=== PATIENT | female | born 1955 | race Caucasian/White ===

== ENCOUNTER 2018-09-24 21:22 | Inpatient (IN) | payer MEDICARE, MEDICAID ==
[~2018-09-24] VITALS: Ht 165.1 cm; Wt 50.0 kg
[2018-09-24 22:37] LABS: CLARITY,URINE SLIGHTLY CLOUDY (Clear); COLOR,URINE YELLOW (Yellow); GLUCOSE, URINE NEGATIVE (Neg); KETONES,URINE NEGATIVE (Neg); LEUKOCYTE ESTERASE ,URINE MODERATE (Neg); NITRITES, URINE NEGATIVE (Neg); OCCULT BLOOD,URINE NEGATIVE (Neg); PH,URINE >=9.0 (4.8-8.0); PROTEIN,URINE 30 mg/dl (Neg); UROBILINOGEN,URINE 0.2 E.U/dL (0.2-1.0)
[2018-09-24 22:37] LABS: HEMOGLOBIN 8.6 g/dl (12.0-16.0); LYMPHOCYTES # (AUTO) 0.2 X10'3 (1.1-4.8); NEUTROPHILS # (AUTO) 3.1 X10'3 (1.8-7.7); WHITE BLOOD COUNT 3.6 X10'3 (4.5-11.0)
[2018-09-24 22:38] LABS: BASOPHILS % (AUTO) 0.6 % (0-1); EOSINOPHILS % (AUTO) 0.4 % (0-6); HEMATOCRIT 25.1 % (35.0-45.0); LYMPHOCYTES % (AUTO) 6.1 % (21-51); MEAN CORPUSCULAR HGB CONC 34.3 g/dL (33.0-36.5); MEAN CORPUSCULAR VOLUME 99.3 FL (78-98); MONOCYTES # (AUTO) 0.2 X10'3 (0-0.9); MONOCYTES % (AUTO) 6.8 % (2-12); NEUTROPHILS % (AUTO) 86.1 % (42-75); PLATELET COUNT 318 X10'3 (140-440); RED BLOOD COUNT 2.53 X10'6 (4.20-5.60); RED CELL DISTRIBUTION WIDTH 13.6 % (11.5-14.5)
[2018-09-24 22:40] LABS: UA COLLECTION TYPE FOLEY CATH; URINE HCG NEGATIVE (NEG)
[2018-09-24 22:45] LABS: BACTERIA,URINE 2+ /HPF (Neg); MUCUS STRANDS NONE SEEN /LPF (Neg); RBC,URINE NONE SEEN /HPF (0-2); SQUAMOUS EPITHELIAL CELL,UR NONE SEEN /LPF (FEW); WBC,URINE 0-4 /HPF (0-4)
--- NOTE | 2018-09-24 22:45 | NUR ---
PT DAUGHTER IS FANI CORRALES, PHONE NUMBER [phone]. REQUESTS TO BE CALLED IF PT DISCHARGES-IS PT RIDE HOME.
[2018-09-24 22:49] LABS: AMORPHOUS PHOSPHATES 1+; TRIPLE PHOSPHATE CRYST 1+ /HPF (NEGATIVE)
[2018-09-24 22:50] LABS: ALANINE AMINOTRANSFERASE 62 U/L (12-78); ALBUMIN 2.6 G/DL (3.4-5.0); ALBUMIN/GLOBULIN RATIO 0.5 (1.1-1.5); ALKALINE PHOSPHATASE 84 IU/L (46-116); ANION GAP 15 (8-16); ASPARTATE AMINO TRANSFERASE 34 U/L (10-37); BILIRUBIN,TOTAL 0.3 MG/DL (0.1-1.0); BLOOD UREA NITROGEN 73 MG/DL (7-18); BUN/CREATININE RATIO 28.6 (6.6-38.0); CALCIUM 8.6 MG/DL (8.5-10.1); CHLORIDE 92 MMOL/L (99-107); CREATININE 2.55 MG/DL (0.40-0.90); GLUCOSE 151 MG/DL (70-104); POTASSIUM 3.5 MMOL/L (3.5-5.1); SODIUM 125 MMOL/L (135-145); TOTAL CARBON DIOXIDE 17.7 MMOL/L (24-32); TOTAL PROTEIN 7.4 G/DL (6.4-8.2); eGFR 19 ML/MIN
[2018-09-24] MEDS ORDERED: SERT-153 PO (23:27)
[2018-09-24] MEDS ORDERED: TACR1CAP28 PO (23:27)
[2018-09-24] MEDS ORDERED: PRED2.5T4 PO (23:30)
[2018-09-24] MEDS ORDERED: METO1TAB25 PO (23:30)
[2018-09-24] MEDS ORDERED: AZAT50TA35 PO (23:30)
[2018-09-24] MEDS ORDERED: OMEP40CA13 PO (23:30)
[2018-09-24] MEDS ORDERED: normal saline 1000ML IV soln IVB ONE (23:35)
[2018-09-25] MEDS ORDERED: normal saline 1000ml 1,000 ML IV SCH (01:22)
[2018-09-25] MEDS ORDERED: acetaminophen 325mg tablet PO PRN (01:25)
[2018-09-25] MEDS ORDERED: metoclopramide 5 mg/ml inj IV PRN (01:25)
[2018-09-25] MEDS: HYDROcodone/acetaminophen 5mg/325mg tablet PO PRN ×2 (03:43→19:24)
[2018-09-25 03:47] VITALS: BP 151/86
--- NOTE | 2018-09-25 06:05 | NUR ---
Patient in room [facility]. I have received report from Parul Myrick RN and had the opportunity to ask questions and assume patient care.
--- NOTE | 2018-09-25 06:42 | NUR ---
Problems reprioritized. Patient report given, questions answered & plan of care reviewed with CORRIE Sanabria.
[2018-09-25 07:47] VITALS: BP 125/60
[2018-09-25] MEDS ORDERED: predniSONE 5mg tablet PO SCH (08:00)
[2018-09-25] MEDS ORDERED: HYDROchlorothiazide 25mg tablet PO SCH (08:00)
[2018-09-25] MEDS ORDERED: metoprolol tartrate 50mg tablet PO SCH (08:00)
[2018-09-25] MEDS ORDERED: prednisone 10mg tablet PO SCH (08:00)
[2018-09-25] MEDS: pantoprazole 40mg Tablet.DR PO SCH (08:46)
[2018-09-25] MEDS: sertraline 50mg tablet PO SCH (08:48)
[2018-09-25] MEDS: tacrolimus anhydrous 1mg capsule PO SCH ×2 (08:48→19:25)
[2018-09-25] MEDS: heparin, porcine 5000 units/ml vial SQ SCH ×2 (08:50→19:26)
[2018-09-25 09:44] LABS: % IRON SATURATION 31 % (11-46); IRON 37 UG/DL (49-151); TOTAL IRON BINDING CAPACITY 121 UG/DL (259-388)
[2018-09-25] MEDS: methylPREDNISolone sod succ 125mg/2ml vial IV SCH ×2 (09:56→19:24)
[2018-09-25] MEDS: potassium cl 20mEq in 1/2 NS 1,000 ML IV SCH ×3 (10:01→23:28)
[2018-09-25] MEDS ORDERED: METO25TA6 PO (10:20)
[2018-09-25] MEDS ORDERED: LORA-269 PO (10:22)
[2018-09-25 12:12] VITALS: BP 141/66
--- NOTE | 2018-09-25 18:18 | NUR ---
Problems reprioritized. Patient report given, questions answered & plan of care reviewed with Parul Myrick RN.
[2018-09-25 19:00] VITALS: BP 163/72
[2018-09-25] MEDS: metoprolol tartrate 25mg tablet PO SCH (19:25)
[2018-09-25] MEDS ORDERED: metoprolol tartrate 25mg tablet PO SCH (20:00)
[2018-09-25] MEDS ORDERED: diatr meglu/diatrizoate 30ml oral sol.-(3 dose) bottle PO ONE (21:00)
--- NOTE | 2018-09-25 21:00 | NUR ---
Urostomy bag was leaking into bed. Required restart of 24 hour urine collection. Restarted at 2100.
[2018-09-25] MEDS: diatr meglu/diatrizoate 30ml oral sol.-(3 dose) bottle PO SCH (22:13)
[2018-09-26] VITALS: BP 144/62
[2018-09-26] MEDS: HYDROcodone/acetaminophen 5mg/325mg tablet PO PRN ×3 (04:48→23:29)
--- NOTE | 2018-09-26 05:16 | NUR ---
colostomy device changed.
[2018-09-26 06:00] LABS: BASOPHILS % (AUTO) 0.3 % (0-1); EOSINOPHILS % (AUTO) 0.2 % (0-6); HEMATOCRIT 24.5 % (35.0-45.0); HEMOGLOBIN 8.4 g/dl (12.0-16.0); LYMPHOCYTES # (AUTO) 0.2 X10'3 (1.1-4.8); LYMPHOCYTES % (AUTO) 8.5 % (21-51); MEAN CORPUSCULAR HEMOGLOBIN 34.3 PG (27.0-31.0); MEAN CORPUSCULAR HGB CONC 34.2 g/dL (33.0-36.5); MEAN CORPUSCULAR VOLUME 100.4 FL (78-98); MEAN PLATELET VOLUME 6.7 FL (7.4-10.4); MONOCYTES # (AUTO) 0.2 X10'3 (0-0.9); MONOCYTES % (AUTO) 6.6 % (2-12); NEUTROPHILS % (AUTO) 84.4 % (42-75); PLATELET COUNT 291 X10'3 (140-440); RED BLOOD COUNT 2.44 X10'6 (4.20-5.60); RED CELL DISTRIBUTION WIDTH 13.7 % (11.5-14.5); WHITE BLOOD COUNT 2.4 X10'3 (4.5-11.0)
[2018-09-26 06:02] LABS: ALANINE AMINOTRANSFERASE 50 U/L (12-78); ALBUMIN 2.3 G/DL (3.4-5.0); ALBUMIN/GLOBULIN RATIO 0.5 (1.1-1.5); ALKALINE PHOSPHATASE 73 IU/L (46-116); ANION GAP 13 (8-16); ASPARTATE AMINO TRANSFERASE 28 U/L (10-37); BILIRUBIN,TOTAL 0.4 MG/DL (0.1-1.0); BLOOD UREA NITROGEN 55 MG/DL (7-18); BUN/CREATININE RATIO 28.5 (6.6-38.0); CALCIUM 8.8 MG/DL (8.5-10.1); CHLORIDE 98 MMOL/L (99-107); CREATININE 1.93 MG/DL (0.40-0.90); GLUCOSE 125 MG/DL (70-104); MAGNESIUM 1.5 MG/DL (1.5-2.4); PHOSPHORUS 4.1 MG/DL (2.3-4.5); POTASSIUM 4.4 MMOL/L (3.5-5.1); SODIUM 129 MMOL/L (135-145); TOTAL CARBON DIOXIDE 17.6 MMOL/L (24-32); TOTAL PROTEIN 6.9 G/DL (6.4-8.2); eGFR 26 ML/MIN
--- NOTE | 2018-09-26 06:23 | NUR ---
Problems reprioritized. Patient report given, questions answered & plan of care reviewed with CORRIE Cooper.
[2018-09-26 07:00] VITALS: BP 151/68
[2018-09-26 07:09] LABS: PLATELET ESTIMATE NORMAL; TOTAL CELLS COUNTED 100
[2018-09-26] MEDS: diatr meglu/diatrizoate 30ml oral sol.-(3 dose) bottle PO SCH ×2 (07:45→11:07)
[2018-09-26] MEDS: pantoprazole 40mg Tablet.DR PO SCH (07:48)
[2018-09-26] MEDS: sertraline 50mg tablet PO SCH (07:48)
[2018-09-26] MEDS: tacrolimus anhydrous 1mg capsule PO SCH ×2 (07:48→20:09)
[2018-09-26] MEDS: metoprolol tartrate 25mg tablet PO SCH ×2 (07:49→20:10)
[2018-09-26] MEDS: heparin, porcine 5000 units/ml vial SQ SCH ×2 (07:50→19:50)
[2018-09-26] MEDS: methylPREDNISolone sod succ 125mg/2ml vial IV SCH ×2 (07:50→19:49)
[2018-09-26] MEDS: potassium cl 20mEq in 1/2 NS 1,000 ML IV SCH (09:12)
[2018-09-26 12:13] VITALS: BP 144/71
--- NOTE | 2018-09-26 16:51 | NUR ---
patient stated she was upset that she wasnt sure about her plan of care. Daughter called also. Dr Mccallum paged and stated ok to give brief update to daughter about patients diet is main focus, as patient appears very malnourished. Daughter called but not reached. will continuie to monitor and will call again. patient appears comfortable.
[2018-09-26] MEDS: ceFAZolin 1GM/D5W- ADD-VANTAGE 50 ML IV SCH ×2 (17:13→19:49)
--- NOTE | 2018-09-26 17:31 | NUR ---
Pt with low BMI of 18.0 and documented with 0-25% PO intake x 3 meals on renal diet not meeting nutrient needs. Pt seen at bedside reports low appetite that has been going on for the last couple of weeks with unknown etiology. Pt reports still eating three meals a day RN APPEALS however they are very small meals. Current documented height is 65", pt reports she is 67"; updated BMI using correct height is 16.96. Pt reports significant wt loss secondary to decreased appetite however is unsure of how much just that it's "a lot". Pt reports UBW of 110 lbs, current documented wt is 108 lbs. Per wt hx pt is -6 lbs since May of this year, this is non-significant wt loss of 5% in four months. However pt is 80% IBW with visible fat and muscle wasting which meets criteria for malnutrition, MD notified. Pt provided with written and verbal malnutrition education with ONS recommendations following discharge. Pt declines ONS or food preferences at this time. Pt admit with TEA, dehydration, emesis, and chronic vaginal bleeding possibly CA related per MD notes. Pt denies food allergies and reports difficulty chewing however denies texture modification at this time. Pt states she has a colostomy and reports increased activity. Documented LBM 8/7 with no stool output documented. Will continue to follow. Recommendations: 1) Continue renal diet; may benefit from diet liberalization pending additional trends in PO intake 2) Encourage PO intake 3) Routine bowel care 4) Iron supplementation given low iron level of 37, TIBC 121; MVI supplementation given MCV 100.4, will discuss recs with MD 5) Wt per rx Addendum: 09/26/18 at [address] Amended: Links added.
[2018-09-26 18:00] VITALS: BP 153/68
--- NOTE | 2018-09-26 18:24 | NUR ---
Patient in room [facility]. I have received report from CORRIE Cooper and had the opportunity to ask questions and assume patient care.
--- NOTE | 2018-09-26 18:48 | NUR ---
Problems reprioritized. Patient report given, questions answered & plan of care reviewed with Adam DENTON.
[2018-09-26 22:19] LABS: UREA NITROGEN 24HR,URINE 7.6 GM/24HR (7-20)
[2018-09-27] VITALS (8 sets, daily range): BP systolic 122–157; BP diastolic 55–80
[2018-09-27] MEDS: potassium cl 20mEq in 1/2 NS 1,000 ML IV SCH ×3 (00:13→19:50)
[2018-09-27] MEDS: HYDROcodone/acetaminophen 5mg/325mg tablet PO PRN ×3 (05:57→20:19)
[2018-09-27 06:08] LABS: TOTAL PROTEIN,URINE RANDOM 32.1 MG/DL
[2018-09-27 06:32] LABS: EOSINOPHILS % (AUTO) 0.3 % (0-6); HEMOGLOBIN 7.6 g/dl (12.0-16.0); MEAN CORPUSCULAR HEMOGLOBIN 34.6 PG (27.0-31.0); MONOCYTES # (AUTO) 0.2 X10'3 (0-0.9); NEUTROPHILS # (AUTO) 1.9 X10'3 (1.8-7.7); RED BLOOD COUNT 2.18 X10'6 (4.20-5.60); WHITE BLOOD COUNT 2.4 X10'3 (4.5-11.0)
[2018-09-27 06:34] LABS: ALANINE AMINOTRANSFERASE 36 U/L (12-78); ALBUMIN 2.2 G/DL (3.4-5.0); ALBUMIN/GLOBULIN RATIO 0.6 (1.1-1.5); ALKALINE PHOSPHATASE 63 IU/L (46-116); ANION GAP 10 (8-16); ASPARTATE AMINO TRANSFERASE 21 U/L (10-37); BILIRUBIN,TOTAL 0.3 MG/DL (0.1-1.0); BLOOD UREA NITROGEN 41 MG/DL (7-18); BUN/CREATININE RATIO 25.5 (6.6-38.0); CALCIUM 8.6 MG/DL (8.5-10.1); CHLORIDE 100 MMOL/L (99-107); CREATININE 1.61 MG/DL (0.40-0.90); GLUCOSE 109 MG/DL (70-104); MAGNESIUM 1.3 MG/DL (1.5-2.4); PHOSPHORUS 3.3 MG/DL (2.3-4.5); SODIUM 128 MMOL/L (135-145); TOTAL CARBON DIOXIDE 18.4 MMOL/L (24-32); TOTAL PROTEIN 6.2 G/DL (6.4-8.2); eGFR 32 ML/MIN
[2018-09-27 06:35] LABS: BASOPHILS % (AUTO) 0.5 % (0-1); LYMPHOCYTES # (AUTO) 0.3 X10'3 (1.1-4.8); LYMPHOCYTES % (AUTO) 10.9 % (21-51); MEAN CORPUSCULAR VOLUME 98.9 FL (78-98); MEAN PLATELET VOLUME 6.7 FL (7.4-10.4); NEUTROPHILS % (AUTO) 81.3 % (42-75); PLATELET COUNT 304 X10'3 (140-440); RED CELL DISTRIBUTION WIDTH 13.7 % (11.5-14.5)
--- NOTE | 2018-09-27 06:39 | NUR ---
Problems reprioritized. Patient report given, questions answered & plan of care reviewed with CORRIE Linares.
[2018-09-27 07:00] LABS: HEMATOCRIT 21.5 % (35.0-45.0)
[2018-09-27 07:17] LABS: UA EOSINOPHILS NO EOS /HPF
[2018-09-27] MEDS: metoprolol tartrate 25mg tablet PO SCH ×2 (07:52→20:20)
[2018-09-27] MEDS: sertraline 50mg tablet PO SCH (07:52)
[2018-09-27] MEDS: tacrolimus anhydrous 1mg capsule PO SCH ×2 (07:52→20:20)
[2018-09-27] MEDS: pantoprazole 40mg Tablet.DR PO SCH ×2 (07:52→20:20)
[2018-09-27] MEDS: methylPREDNISolone sod succ 125mg/2ml vial IV SCH ×2 (07:54→20:21)
[2018-09-27] MEDS: heparin, porcine 5000 units/ml vial SQ SCH ×2 (07:54→20:21)
[2018-09-27] MEDS: ceFAZolin 1GM/D5W- ADD-VANTAGE 50 ML IV SCH ×2 (07:54→20:21)
[2018-09-27] MEDS ORDERED: SIMETHICONE/SOD BICARB/CIT AC PACKET PO ONE ×2 (08:00→09:00)
--- NOTE | 2018-09-27 08:05 | NUR ---
reported critical hct 21.5 and decreased mag of 1.3 to MD. no new orders.
[2018-09-27 08:28] LABS: PLATELET ESTIMATE NORMAL; SCHISTOCYTES FEW; TOTAL CELLS COUNTED 100
[2018-09-27 15:52] LABS: OCCULT BLOOD STOOL NEGATIVE (Neg)
--- NOTE | 2018-09-27 18:00 | NUR ---
Patient in room [facility]. I have received report from CORRIE HADDAD and had the opportunity to ask questions and assume patient care.
--- NOTE | 2018-09-27 18:07 | NUR ---
Problems reprioritized. Patient report given, questions answered & plan of care reviewed with CORRIE Medina.
[2018-09-28] VITALS: BP 118/68
[2018-09-28] MEDS: potassium cl 20mEq in 1/2 NS 1,000 ML IV SCH (00:13)
[2018-09-28] MEDS: HYDROcodone/acetaminophen 5mg/325mg tablet PO PRN (04:16)
[2018-09-28 05:58] LABS: BASOPHILS % (AUTO) 0.4 % (0-1); MONOCYTES # (AUTO) 0.2 X10'3 (0-0.9)
[2018-09-28 06:00] VITALS: BP 122/74
[2018-09-28 06:00] LABS: EOSINOPHILS % (AUTO) 0.3 % (0-6); HEMATOCRIT 25.8 % (35.0-45.0); HEMOGLOBIN 8.9 g/dl (12.0-16.0); LYMPHOCYTES # (AUTO) 0.2 X10'3 (1.1-4.8); LYMPHOCYTES % (AUTO) 9.4 % (21-51); MEAN CORPUSCULAR HEMOGLOBIN 33.6 PG (27.0-31.0); MEAN CORPUSCULAR HGB CONC 34.7 g/dL (33.0-36.5); MEAN CORPUSCULAR VOLUME 96.7 FL (78-98); MEAN PLATELET VOLUME 6.4 FL (7.4-10.4); MONOCYTES % (AUTO) 6.4 % (2-12); NEUTROPHILS # (AUTO) 2.1 X10'3 (1.8-7.7); NEUTROPHILS % (AUTO) 83.5 % (42-75); PLATELET COUNT 315 X10'3 (140-440); RED BLOOD COUNT 2.67 X10'6 (4.20-5.60)
[2018-09-28 06:04] LABS: ALANINE AMINOTRANSFERASE 23 U/L (12-78); ALBUMIN 2.1 G/DL (3.4-5.0); ALBUMIN/GLOBULIN RATIO 0.5 (1.1-1.5); ALKALINE PHOSPHATASE 62 IU/L (46-116); ANION GAP 9 (8-16); ASPARTATE AMINO TRANSFERASE 17 U/L (10-37); BILIRUBIN,TOTAL 0.4 MG/DL (0.1-1.0); BLOOD UREA NITROGEN 32 MG/DL (7-18); BUN/CREATININE RATIO 23.4 (6.6-38.0); CALCIUM 8.5 MG/DL (8.5-10.1); CHLORIDE 99 MMOL/L (99-107); CREATININE 1.37 MG/DL (0.40-0.90); GLUCOSE 112 MG/DL (70-104); MAGNESIUM 1.1 MG/DL (1.5-2.4); POTASSIUM 5.2 MMOL/L (3.5-5.1); SODIUM 128 MMOL/L (135-145); TOTAL CARBON DIOXIDE 19.8 MMOL/L (24-32); TOTAL PROTEIN 6.3 G/DL (6.4-8.2); eGFR 39 ML/MIN
[2018-09-28 06:09] LABS: WHITE BLOOD COUNT 2.5 X10'3 (4.5-11.0)
--- NOTE | 2018-09-28 06:40 | NUR ---
Patient in room [facility]. I have received report from CORRIE Santamaria and had the opportunity to ask questions and assume patient care.
--- NOTE | 2018-09-28 06:40 | NUR ---
Problems reprioritized. Patient report given, questions answered & plan of care reviewed with CORRIE Delong.
[2018-09-28 07:26] LABS: PLATELET ESTIMATE NORMAL; TOTAL CELLS COUNTED 100
[2018-09-28 07:27] LABS: ANISOCYTOSIS 1+
[2018-09-28] MEDS: ceFAZolin 1GM/D5W- ADD-VANTAGE 50 ML IV SCH (08:20)
[2018-09-28] MEDS: methylPREDNISolone sod succ 125mg/2ml vial IV SCH (08:20)
[2018-09-28] MEDS: tacrolimus anhydrous 1mg capsule PO SCH (08:20)
[2018-09-28] MEDS: sertraline 50mg tablet PO SCH (08:20)
[2018-09-28] MEDS: heparin, porcine 5000 units/ml vial SQ SCH (08:21)
[2018-09-28] MEDS: metoprolol tartrate 25mg tablet PO SCH (08:21)
[2018-09-28] MEDS: pantoprazole 40mg Tablet.DR PO SCH (08:21)
[2018-09-28] MEDS ORDERED: AZAT50TA35 PO (08:41)
[2018-09-28] MEDS ORDERED: PANT40TA4 PO (08:41)
--- NOTE | 2018-09-28 09:07 | NUR ---
Dr. Mccallum notified of patient's high K 5.2 and low Mag 1.1. No new orders.
[2018-09-28 11:00] VITALS: BP 117/69
== END 2018-09-28 11:17 | disposition home or self-care (01) | DRG 682 ==
LOC: ER 21:23 → SUR 3N 09-25 01:41 → CMPBEDREQ 09-25 01:44
PROVIDERS: ADMIT Internal Medicine Critical Care Medicine; ATTEND Internal Medicine Critical Care Medicine
PROC: CT1 Nuclear Medicine, Urinary System, Planar Nuclear Medicine Imaging (ICD-10-PCS; 2018-09-25)
PROC: 30233N1 Transfusion of Nonautologous Red Blood Cells into Peripheral Vein, Percutaneous Approach (ICD-10-PCS; principal; 2018-09-27)
PROC: BD15YZZ Fluoroscopy of Upper GI using Other Contrast (ICD-10-PCS; 2018-09-27)
DX: N17.9 Acute kidney failure, unspecified (principal); E43 Unspecified severe protein-calorie malnutrition; E87.1 Hypo-osmolality and hyponatremia; Z68.1 Body mass index [BMI] 19.9 or less, adult; D61.818 Other pancytopenia; T86.19 Other complication of kidney transplant; N39.0 Urinary tract infection, site not specified; R64 Cachexia; K22.4 Dyskinesia of esophagus; R19.7 Diarrhea, unspecified; N18.9 Chronic kidney disease, unspecified; N93.9 Abnormal uterine and vaginal bleeding, unspecified; E86.0 Dehydration; Y83.0 Surgical operation with transplant of whole organ as the cause of abnormal reaction of the patient, or of later complication, without mention of misadventure at the time of the procedure; Z85.038 Personal history of other malignant neoplasm of large intestine; Z86.73 Personal history of transient ischemic attack (TIA), and cerebral infarction without residual deficits; Z90.710 Acquired absence of both cervix and uterus; Z93.3 Colostomy status; Z88.6 Allergy status to analgesic agent; Z88.5 Allergy status to narcotic agent; Z88.2 Allergy status to sulfonamides; Z88.8 Allergy status to other drugs, medicaments and biological substances; Z93.2 Ileostomy status; Z79.899 Other long term (current) drug therapy
CPT/HCPCS: 36415; 71045; 71250; 74176; 74241; 76700; 78707; 80053; 80197; 81001; 81025; 82272; 82570; 83540; 83550; 83605; 83735; 83935; 84100; 84133; 84145; 84156; 84300; 84560; 85025; 85610; 86644; 86885; 86900; 86901; 86920; 86945; 87040; 87077; 87081; 87088; 87186; 87207; 96360; 99285; A9562; G0378; J0690; J1644; J2930; J3480; J7030; J7500; J7507; J7512; P9016; Q9963

== ENCOUNTER 2018-10-09 20:22 | Inpatient (IN) | payer MEDICARE, MEDICAID ==
[~2018-10-09] VITALS: Ht 152.4 cm; Wt 43.0 kg
--- NOTE | 2018-10-09 06:00 | NUR ---
patient not on surgical yet Addendum: 10/10/18 at 0611 by Agustina Love RN Amended: Links added.
--- NOTE | 2018-10-09 06:05 | NUR ---
patient arrived on the floor from ER and she required 1 unit of blood transfusion. Patient is very weak and frail.
[~2018-10-09 20:22] MED LIST: AZAT50TA35 PO; LORA-269 PO; METO25TA6 PO; PANT40TA4 PO; PRED2.5T4 PO; SERT-153 PO; TACR1CAP28 PO
[2018-10-09 21:07] LABS: LYMPHOCYTES # (AUTO) 0.2 X10'3 (1.1-4.8); MEAN CORPUSCULAR HEMOGLOBIN 33.4 PG (27.0-31.0); RED BLOOD COUNT 2.23 X10'6 (4.20-5.60); RED CELL DISTRIBUTION WIDTH 14.6 % (11.5-14.5); WHITE BLOOD COUNT 1.8 X10'3 (4.5-11.0)
[2018-10-09 21:09] LABS: BASOPHILS % (AUTO) 0.4 % (0-1); EOSINOPHILS % (AUTO) 1.3 % (0-6); HEMATOCRIT 22.1 % (35.0-45.0); HEMOGLOBIN 7.5 g/dl (12.0-16.0); LYMPHOCYTES % (AUTO) 10.9 % (21-51); MEAN CORPUSCULAR HGB CONC 33.7 g/dL (33.0-36.5); MEAN CORPUSCULAR VOLUME 98.9 FL (78-98); MEAN PLATELET VOLUME 6.6 FL (7.4-10.4); MONOCYTES # (AUTO) 0.2 X10'3 (0-0.9); NEUTROPHILS # (AUTO) 1.4 X10'3 (1.8-7.7); NEUTROPHILS % (AUTO) 77.4 % (42-75); PLATELET COUNT 309 X10'3 (140-440)
[2018-10-09 21:19] LABS: ALANINE AMINOTRANSFERASE 52 U/L (12-78); ALBUMIN 2.4 G/DL (3.4-5.0); ALBUMIN/GLOBULIN RATIO 0.5 (1.1-1.5); ALKALINE PHOSPHATASE 95 IU/L (46-116); ANION GAP 11 (8-16); ASPARTATE AMINO TRANSFERASE 44 U/L (10-37); BILIRUBIN,TOTAL 0.6 MG/DL (0.1-1.0); BLOOD UREA NITROGEN 67 MG/DL (7-18); BUN/CREATININE RATIO 30.6 (6.6-38.0); CALCIUM 8.8 MG/DL (8.5-10.1); CHLORIDE 92 MMOL/L (99-107); CREATININE 2.19 MG/DL (0.40-0.90); GLUCOSE 102 MG/DL (70-104); POTASSIUM 4.5 MMOL/L (3.5-5.1); SODIUM 121 MMOL/L (135-145); TOTAL CARBON DIOXIDE 17.8 MMOL/L (24-32); TOTAL PROTEIN 6.9 G/DL (6.4-8.2); eGFR 23 ML/MIN
[2018-10-09 21:23] LABS: PARTIAL THROMBOPLASTIN TIME 38 SECONDS (22-32)
--- NOTE | 2018-10-09 21:33 | NUR ---
patient now require cmv negative and irradiated blood per [facility]
[2018-10-09 21:38] LABS: BANDS% (MANUAL) 2 % (0-10); LYMPHOCYTES % (MANUAL) 14 % (21-51); MONOCYTES % (MANUAL) 10 % (2-12); NEUTROPHILS % (MANUAL) 74 % (42-75); PLATELET ESTIMATE NORMAL; SMUDGE CELLS 1+; TOTAL CELLS COUNTED 100
[2018-10-09] MEDS ORDERED: magnesium hydroxide 30ml (MOM) UD suspension PO PRN (22:45)
[2018-10-09] MEDS ORDERED: acetaminophen 325mg tablet PO PRN (22:45)
[2018-10-09] MEDS ORDERED: mag hydrox/Alum hydrox/simeth 30ml oral suspension PO PRN (22:45)
--- NOTE | 2018-10-09 23:23 | NUR ---
Attempted to call report to surgical floor, spoke with Caitlyn who stated that nurse had just received assignment and could I call back in 5 min.
[2018-10-10] VITALS (10 sets, daily range): BP systolic 134–189; BP diastolic 48–74
--- NOTE | 2018-10-10 06:39 | NUR ---
Problems reprioritized. Patient report given, questions answered & plan of care reviewed with Sonia DENTON.
[2018-10-10] MEDS: LORazepam 1 MG tablet PO SCH (08:16)
[2018-10-10] MEDS: pantoprazole 40mg Tablet.DR PO SCH ×2 (08:16→19:48)
[2018-10-10] MEDS: sertraline 50mg tablet PO SCH (08:16)
[2018-10-10] MEDS: metoprolol tartrate 25mg tablet PO SCH ×2 (08:38→19:47)
[2018-10-10] MEDS: predniSONE 5mg tablet PO SCH (08:38)
[2018-10-10] MEDS: tacrolimus anhydrous 1mg capsule PO SCH ×2 (08:58→19:47)
[2018-10-10 09:17] LABS: LYMPHOCYTES # (AUTO) 0.2 X10'3 (1.1-4.8); MEAN CORPUSCULAR HGB CONC 33.9 g/dL (33.0-36.5); MONOCYTES # (AUTO) 0.2 X10'3 (0-0.9)
[2018-10-10 09:20] LABS: BASOPHILS % (AUTO) 0.5 % (0-1); EOSINOPHILS % (AUTO) 0.5 % (0-6); HEMATOCRIT 26.5 % (35.0-45.0); LYMPHOCYTES % (AUTO) 7.1 % (21-51); MEAN CORPUSCULAR HEMOGLOBIN 31.6 PG (27.0-31.0); MEAN CORPUSCULAR VOLUME 93.1 FL (78-98); MEAN PLATELET VOLUME 6.3 FL (7.4-10.4); MONOCYTES % (AUTO) 9.4 % (2-12); NEUTROPHILS % (AUTO) 82.5 % (42-75); PLATELET COUNT 329 X10'3 (140-440); RED BLOOD COUNT 2.84 X10'6 (4.20-5.60); RED CELL DISTRIBUTION WIDTH 21.1 % (11.5-14.5); WHITE BLOOD COUNT 2.4 X10'3 (4.5-11.0)
[2018-10-10 09:34] LABS: ALANINE AMINOTRANSFERASE 47 U/L (12-78); ALBUMIN 2.3 G/DL (3.4-5.0); ALBUMIN/GLOBULIN RATIO 0.5 (1.1-1.5); ALKALINE PHOSPHATASE 92 IU/L (46-116); ANION GAP 13 (8-16); ASPARTATE AMINO TRANSFERASE 39 U/L (10-37); BILIRUBIN,TOTAL 1.8 MG/DL (0.1-1.0); BLOOD UREA NITROGEN 56 MG/DL (7-18); BUN/CREATININE RATIO 31.5 (6.6-38.0); CALCIUM 8.7 MG/DL (8.5-10.1); CHLORIDE 94 MMOL/L (99-107); CREATININE 1.78 MG/DL (0.40-0.90); GLUCOSE 141 MG/DL (70-104); MAGNESIUM 1.3 MG/DL (1.5-2.4); PHOSPHORUS 3.2 MG/DL (2.3-4.5); POTASSIUM 4.5 MMOL/L (3.5-5.1); SODIUM 124 MMOL/L (135-145); TOTAL CARBON DIOXIDE 17.2 MMOL/L (24-32); TOTAL PROTEIN 6.7 G/DL (6.4-8.2); eGFR 29 ML/MIN
[2018-10-10 09:54] LABS: PLATELET ESTIMATE NORMAL; TOTAL CELLS COUNTED 100
[2018-10-10 09:55] LABS: ANISOCYTOSIS 3+
--- NOTE | 2018-10-10 14:05 | NUR ---
Malnutrition consult re: "lost 10-12 lbs in 3 months". Pt just recently discharged 09/28/[address] during that visit where pt reported UBW 110 lbs with wt loss however was unsure of how much wt she lost however per documented wt hx patient's wt is -6 lbs since May of this year, this is non-significant wt loss of 5% in four months. Pt reports actual height is 67", current documented ht is 60"; updated BMI is underweight at 17. Pt with no edema or wounds. Documented with severe decrease in muscle strength and is 80% IBW with visible fat and muscle wasting which meets criteria for malnutrition, MD notified. Pt with chronic vaginal bleeding and a micro-proliferative disease, admit with symptomatic anemia. Pt currently on a renal diet with documented 75% PO intake likely meeting nutrient needs. LBM 10/10, documented with 150 mL colostomy output per I&O. No edema or wounds. Will continue to follow. Recommendations: 1) Continue with renal diet 2) Monitor need for ONS 3) Wt per rx Addendum: 10/10/18 at [address] Amended: Links added.
--- NOTE | 2018-10-10 18:48 | NUR ---
Patient in room [facility]. I have received report from Sonia DENTON and had the opportunity to ask questions and assume patient care.
[2018-10-10] MEDS: acetaminophen 325mg tablet PO PRN (22:42)
[2018-10-11] MEDS: acetaminophen 325mg tablet PO PRN ×2 (04:59→12:52)
[2018-10-11 06:26] LABS: BASOPHILS % (AUTO) 0.4 % (0-1); HEMOGLOBIN 9.1 g/dl (12.0-16.0); LYMPHOCYTES # (AUTO) 0.2 X10'3 (1.1-4.8); MONOCYTES # (AUTO) 0.3 X10'3 (0-0.9); NEUTROPHILS # (AUTO) 2.2 X10'3 (1.8-7.7); RED CELL DISTRIBUTION WIDTH 21.6 % (11.5-14.5)
[2018-10-11 06:28] LABS: EOSINOPHILS % (AUTO) 1.5 % (0-6); HEMATOCRIT 27.2 % (35.0-45.0); LYMPHOCYTES % (AUTO) 7.2 % (21-51); MEAN CORPUSCULAR HEMOGLOBIN 30.7 PG (27.0-31.0); MEAN CORPUSCULAR HGB CONC 33.3 g/dL (33.0-36.5); MEAN CORPUSCULAR VOLUME 92.1 FL (78-98); MEAN PLATELET VOLUME 6.3 FL (7.4-10.4); NEUTROPHILS % (AUTO) 80.9 % (42-75); PLATELET COUNT 407 X10'3 (140-440); RED BLOOD COUNT 2.95 X10'6 (4.20-5.60); WHITE BLOOD COUNT 2.8 X10'3 (4.5-11.0)
[2018-10-11 06:34] LABS: ALANINE AMINOTRANSFERASE 56 U/L (12-78); ALBUMIN 2.4 G/DL (3.4-5.0); ALBUMIN/GLOBULIN RATIO 0.5 (1.1-1.5); ALKALINE PHOSPHATASE 96 IU/L (46-116); ANION GAP 14 (8-16); ASPARTATE AMINO TRANSFERASE 52 U/L (10-37); BILIRUBIN,TOTAL 0.9 MG/DL (0.1-1.0); BLOOD UREA NITROGEN 45 MG/DL (7-18); BUN/CREATININE RATIO 28.1 (6.6-38.0); CALCIUM 9.1 MG/DL (8.5-10.1); CHLORIDE 96 MMOL/L (99-107); GLUCOSE 100 MG/DL (70-104); MAGNESIUM 1.3 MG/DL (1.5-2.4); PHOSPHORUS 3.2 MG/DL (2.3-4.5); POTASSIUM 4.2 MMOL/L (3.5-5.1); SODIUM 129 MMOL/L (135-145); TOTAL CARBON DIOXIDE 18.7 MMOL/L (24-32); eGFR 32 ML/MIN
--- NOTE | 2018-10-11 06:40 | NUR ---
Problems reprioritized. Patient report given, questions answered & plan of care reviewed with Neville DENTON.
--- NOTE | 2018-10-11 06:51 | NUR ---
Patient in room [facility]. I have received report from CORRIE FARRIS and had the opportunity to ask questions and assume patient care.
[2018-10-11 07:20] VITALS: BP 146/67
[2018-10-11] MEDS: sertraline 50mg tablet PO SCH (07:38)
[2018-10-11] MEDS: tacrolimus anhydrous 1mg capsule PO SCH ×2 (07:38→19:14)
[2018-10-11] MEDS: metoprolol tartrate 25mg tablet PO SCH ×2 (07:38→19:15)
[2018-10-11] MEDS: LORazepam 1 MG tablet PO SCH (07:39)
[2018-10-11] MEDS: pantoprazole 40mg Tablet.DR PO SCH ×2 (07:39→19:14)
[2018-10-11] MEDS: predniSONE 5mg tablet PO SCH (07:40)
[2018-10-11 10:11] LABS: ANISOCYTOSIS 3+; PLATELET ESTIMATE NORMAL; TOTAL CELLS COUNTED 100
--- NOTE | 2018-10-11 11:09 | NUR ---
F/u: Iron 37(L) and TIBC 121(L) at last visit 09/25. Per MD notes iron studies to be checked this visit. Per MD no need for iron supplement at this time. Noted that PO intake has decreased to 25-50%, recommend Nepro TID to provide additional kcal, MD notified. ONS to be sent pending MD verification in [employer]. Will continue to follow. Addendum: 10/11/18 at [address] Amended: Links added.
[2018-10-11 11:36] VITALS: BP 138/60
[2018-10-11] MEDS: HYDROcodone/acetaminophen 10/325mg tab PO PRN ×2 (17:11→23:08)
[2018-10-11 18:00] VITALS: BP 127/58
--- NOTE | 2018-10-11 18:37 | NUR ---
Problems reprioritized. Patient report given, questions answered & plan of care reviewed with CORRIE WHITLEY.
--- NOTE | 2018-10-11 18:38 | NUR ---
Patient in room [facility]. I have received report from Nabeel DENTON and had the opportunity to ask questions and assume patient care.
[2018-10-11] MEDS: magnesium Cl slow-release 64mg tablet PO SCH (19:15)
[2018-10-11 23:55] VITALS: BP 155/68
[2018-10-12 04:49] LABS: EOSINOPHILS # (AUTO) 0.1 X10'3 (0-0.9); HEMATOCRIT 27.5 % (35.0-45.0); HEMOGLOBIN 9.5 g/dl (12.0-16.0); LYMPHOCYTES # (AUTO) 0.3 X10'3 (1.1-4.8); MONOCYTES # (AUTO) 0.3 X10'3 (0-0.9); NEUTROPHILS # (AUTO) 2.5 X10'3 (1.8-7.7)
[2018-10-12 04:51] LABS: BASOPHILS % (AUTO) 0.6 % (0-1); EOSINOPHILS % (AUTO) 1.9 % (0-6); LYMPHOCYTES % (AUTO) 9.5 % (21-51); MEAN CORPUSCULAR HEMOGLOBIN 31.6 PG (27.0-31.0); MEAN CORPUSCULAR HGB CONC 34.5 g/dL (33.0-36.5); MEAN CORPUSCULAR VOLUME 91.6 FL (78-98); MEAN PLATELET VOLUME 5.8 FL (7.4-10.4); MONOCYTES % (AUTO) 8.6 % (2-12); NEUTROPHILS % (AUTO) 79.4 % (42-75); PLATELET COUNT 458 X10'3 (140-440); RED CELL DISTRIBUTION WIDTH 21.2 % (11.5-14.5); WHITE BLOOD COUNT 3.1 X10'3 (4.5-11.0)
[2018-10-12 05:02] LABS: ALANINE AMINOTRANSFERASE 52 U/L (12-78); ALBUMIN 2.4 G/DL (3.4-5.0); ALBUMIN/GLOBULIN RATIO 0.5 (1.1-1.5); ALKALINE PHOSPHATASE 102 IU/L (46-116); ANION GAP 13 (8-16); ASPARTATE AMINO TRANSFERASE 47 U/L (10-37); BILIRUBIN,TOTAL 0.6 MG/DL (0.1-1.0); BLOOD UREA NITROGEN 45 MG/DL (7-18); BUN/CREATININE RATIO 24.6 (6.6-38.0); CALCIUM 9.2 MG/DL (8.5-10.1); CHLORIDE 97 MMOL/L (99-107); CREATININE 1.83 MG/DL (0.40-0.90); GLUCOSE 90 MG/DL (70-104); MAGNESIUM 1.4 MG/DL (1.5-2.4); PHOSPHORUS 3.7 MG/DL (2.3-4.5); POTASSIUM 4.3 MMOL/L (3.5-5.1); SODIUM 128 MMOL/L (135-145); TOTAL PROTEIN 7.2 G/DL (6.4-8.2); eGFR 28 ML/MIN
--- NOTE | 2018-10-12 06:35 | NUR ---
Problems reprioritized. Patient report given, questions answered & plan of care reviewed with Jeff RN.
[2018-10-12] MEDS: HYDROcodone/acetaminophen 10/325mg tab PO PRN (06:44)
[2018-10-12 06:55] LABS: ANISOCYTOSIS 3+; BURR CELLS 1+; PLATELET ESTIMATE INCREASED; ROULEAUX 1+; TOTAL CELLS COUNTED 100; TOXIC GRANULATION 1+
[2018-10-12 07:00] VITALS: BP_SYST 149; BP_SYST 150; BP_DIAS 111; BP_DIAS 69
[2018-10-12] MEDS: predniSONE 5mg tablet PO SCH (07:54)
[2018-10-12] MEDS: pantoprazole 40mg Tablet.DR PO SCH (07:54)
[2018-10-12] MEDS: tacrolimus anhydrous 1mg capsule PO SCH (07:55)
[2018-10-12] MEDS: sertraline 50mg tablet PO SCH (07:56)
[2018-10-12] MEDS: metoprolol tartrate 25mg tablet PO SCH (07:56)
[2018-10-12] MEDS: LORazepam 1 MG tablet PO SCH (07:57)
[2018-10-12] MEDS: magnesium Cl slow-release 64mg tablet PO SCH (08:00)
[2018-10-12 11:00] VITALS: BP 110/54
[2018-10-12] MEDS ORDERED: MEGE400O4 PO (14:44)
--- NOTE | 2018-10-12 17:30 | NUR ---
Problems reprioritized. Patient report given, questions answered & plan of care reviewed with Accepting Nurse at [facility].
== END 2018-10-12 17:09 | DRG 698 ==
LOC: ER 20:22 → SUR 3N 23:26 → CMPBEDREQ 10-10 00:06 → SUR 3N 10-11 03:00
PROVIDERS: ATTEND Internal Medicine Critical Care Medicine
PROC: 30233N1 Transfusion of Nonautologous Red Blood Cells into Peripheral Vein, Percutaneous Approach (ICD-10-PCS; principal; 2018-10-10)
DX: T86.19 Other complication of kidney transplant (principal); E43 Unspecified severe protein-calorie malnutrition; N17.9 Acute kidney failure, unspecified; Z68.1 Body mass index [BMI] 19.9 or less, adult; D64.9 Anemia, unspecified; K21.9 Gastro-esophageal reflux disease without esophagitis; Z60.2 Problems related to living alone; N18.3 Chronic kidney disease, stage 3 (moderate); K22.4 Dyskinesia of esophagus; N93.9 Abnormal uterine and vaginal bleeding, unspecified; Y83.0 Surgical operation with transplant of whole organ as the cause of abnormal reaction of the patient, or of later complication, without mention of misadventure at the time of the procedure; Z88.2 Allergy status to sulfonamides; Z79.899 Other long term (current) drug therapy; Z88.6 Allergy status to analgesic agent; Z88.8 Allergy status to other drugs, medicaments and biological substances; Z85.048 Personal history of other malignant neoplasm of rectum, rectosigmoid junction, and anus; Z90.6 Acquired absence of other parts of urinary tract; Z90.710 Acquired absence of both cervix and uterus; Z93.3 Colostomy status; Z93.6 Other artificial openings of urinary tract status; Z93.2 Ileostomy status; Y92.89 Other specified places as the place of occurrence of the external cause; Z92.3 Personal history of irradiation; Z92.21 Personal history of antineoplastic chemotherapy
CPT/HCPCS: 36415; 71045; 80053; 83735; 84100; 84484; 85025; 85610; 85730; 86885; 86900; 86901; 86920; 87081; 93005; 97161; 97530; 99285; G0378; J7500; J7507; J7512; P9016